=== PATIENT | male | born 1950 | race Caucasian/White ===

== ENCOUNTER 2019-11-22 07:41 | Outpatient (CLI) | payer OTHER | END 2019-11-22 23:59 | disposition home or self-care (01) | LOC: CVU 07:41 | PROVIDERS: ATTEND Orthopaedic Surgery | DX: I36.1 Nonrheumatic tricuspid (valve) insufficiency (principal); I25.10 Atherosclerotic heart disease of native coronary artery without angina pectoris; I51.7 Cardiomegaly | CPT/HCPCS: 93306 ==

== ENCOUNTER 2019-12-27 12:54 | Outpatient (CLI) | payer OTHER | END 2019-12-27 23:59 | disposition home or self-care (01) | LOC: STAR 12:54 | PROVIDERS: ATTEND Orthopaedic Surgery | DX: I25.10 Atherosclerotic heart disease of native coronary artery without angina pectoris (principal) | CPT/HCPCS: 93005 ==

== ENCOUNTER 2020-05-14 09:14 | Outpatient (CLI) | payer OTHER | END 2020-05-14 23:59 | disposition home or self-care (01) | LOC: CARD 09:14 | DX: M21.371 Foot drop, right foot (principal); M62.58 Muscle wasting and atrophy, not elsewhere classified, other site | CPT/HCPCS: 95886; 95909 ==